=== PATIENT | male | born 1960 | race African-American/Black ===

== ENCOUNTER 2019-12-15 15:40 | Inpatient (IN) | payer MEDICAID ==
[~2019-12-15] VITALS: Ht 182.9 cm; Wt 79.8 kg
[2019-12-15] MEDS ORDERED: DILTIAZEM HCL 5MG/ML 5ML VIAL IV ONE ×2 (16:08→16:15)
[2019-12-15] MEDS ORDERED: SODIUM CHLORIDE 0.9% 1000ML BAG (SEPSIS BOLUS) IV ONE (16:15)
[2019-12-15] MEDS ORDERED: ONDANSETRON HCL 4MG/2ML INJ IV STA (16:20)
[2019-12-15] MEDS ORDERED: MORPHINE SULFATE 4 MG/ML CPJ (NOT FOR IM USE) IV STA (16:20)
[2019-12-15 16:24] LABS: HEMOGLOBIN. 9.4 g/dL (14.0-18.0); MEAN CORPUSCULAR VOLUME 86.9 fL (80.0-94.0); MEAN PLATELET VOLUME 8.3 fl (7.4-10.4); PLATELET 253 x1000/uL (130-400); RED BLOOD CELL COUNT 3.34 mill/uL (4.7-6.1); RED CELL DISTRIBUTION WIDTH 17.3 % (11.6-14.6)
[2019-12-15 16:30] LABS: CHLORIDE 108 mEq/L (98-107)
[2019-12-15 16:32] LABS: INR 1.1; PARTIAL THROMBOPLASTIN TIME 24.9 sec (23.4-31.0); PROTHROMBIN TIME 12.1 sec (9.6-11.0)
[2019-12-15 17:26] LABS: PLATELET ESTIMATE NORMAL
[2019-12-15 17:36] LABS: CLARITY URINE CLEAR (CLEAR); COLOR URINE YELLOW (YELLOW); KETONES URINE NEGATIVE (NEGATIVE); LEUKOCYTE ESTERASE URINE TRACE (NEGATIVE); NITRITE URINE NEGATIVE (NEGATIVE); OCCULT BLOOD URINE NEGATIVE (NEGATIVE); PROTEIN URINE NEGATIVE (NEGATIVE); SPECIFIC GRAVITY URINE 1.022 (1.005-1.030); UROBILINOGEN URINE 0.2 E.U./dL (0.2-1.0)
[2019-12-15 17:53] LABS: *AMPHETAMINES SCREEN URINE NEGATIVE (NEGATIVE); *BARBITURATES SCREEN URINE NEGATIVE (NEGATIVE); *BENZODIAZEPINES SCREEN URINE NEGATIVE (NEGATIVE); *COCAINE SCREEN URINE NEGATIVE (NEGATIVE)
[2019-12-15 17:54] LABS: CANNABINOID URINE SCREEN PRESUMTIVE POSITIVE (NEGATIVE); METHADONE URINE SCREEN NEGATIVE (NEGATIVE); OPIATES URINE SCREEN PRESUMTIVE POSITIVE (NEGATIVE); PHENCYCLIDINE URINE SCREEN NEGATIVE (NEGATIVE)
[2019-12-15] MEDS ORDERED: LEVOFLOXACIN 750MG PREMIX 150 ML IV ONE (18:15)
[2019-12-15] MEDS ORDERED: METRONIDAZOLE 500 MG PREMIX 100 ML IV ONE (18:15)
[2019-12-15] MEDS ORDERED: PANTOPRAZOLE SODIUM 40 MG/VIAL IV ONE (18:15)
[2019-12-15] MEDS ORDERED: DILTIAZEM HCL 60MG TABLET PO ONE (18:15)
[2019-12-15] MEDS ORDERED: IPRATROPIUM/ALBUTEROL 0.5-3(2.5)MG/3ML NEB HHN PRN (19:30)
[2019-12-15] MEDS ORDERED: ONDANSETRON HCL 4MG/2ML INJ IV PRN (19:30)
[2019-12-15] MEDS ORDERED: CLONIDINE 0.1MG TABLET PO PRN (19:30)
[2019-12-15] MEDS ORDERED: ACETAMINOPHEN 325MG TABLET PO PRN (19:30)
[2019-12-15 20:43] LABS: PHOSPHORUS 3.3 mg/dL (2.5-4.9)
[2019-12-15 23:00] VITALS: BP 126/75
[2019-12-15] MEDS ORDERED: ASPI-1158 PO (23:09)
[2019-12-15] MEDS ORDERED: LIP40 PO (23:09)
[2019-12-15] MEDS ORDERED: METO-539 PO (23:10)
[2019-12-15] MEDS ORDERED: AMLO5TAB88 PO (23:12)
[2019-12-15] MEDS ORDERED: HYDR25TA PO (23:12)
[2019-12-15] MEDS ORDERED: RIVA20TA PO (23:12)
[2019-12-16] VITALS (19 sets, daily range): BP systolic 94–137; BP diastolic 45–89
[2019-12-16] MEDS: MORPHINE SULFATE 2 MG/ML CPJ (NOT FOR IM USE) IV PRN ×2 (00:34→04:15)
[2019-12-16] MEDS: SODIUM CHLORIDE 0.9% 1,000 ML IV SCH ×3 (00:35→20:00)
[2019-12-16 00:53] LABS: HEMATOCRIT 21.9 % (42.0-52.0); HEMOGLOBIN 7.2 g/dL (14.0-18.0); MEAN CORPUSCULAR HEMOGLOBIN 28.3 pg (28.0-32.0); MEAN CORPUSCULAR VOLUME 86.3 fL (80.0-94.0); PLATELET 200 x1000/uL (130-400); RED BLOOD CELL COUNT 2.54 mill/uL (4.7-6.1); RED CELL DISTRIBUTION WIDTH 17.3 % (11.6-14.6)
[2019-12-16] MEDS ORDERED: DEXTROSE 50% WATER 50ML SYRINGE IV PRN (03:15)
[2019-12-16] MEDS ORDERED: LORAZEPAM 0.5MG TABLET PO PRN (03:30)
[2019-12-16] MEDS ORDERED: PANTOPRAZOLE 80 MG in SODIUM CHLORIDE 0.9% 100 ML IV SCH (04:00)
[2019-12-16] MEDS ORDERED: DILTIAZEM HCL 60MG TABLET PO SCH (04:00)
[2019-12-16] MEDS: BLOOD SUGAR DIAGNOSTIC STRIP TEST SCH ×4 (05:26→20:18)
[2019-12-16] MEDS: INSULIN LISPRO 100 UNITS/ML SUBCUT SCH ×4 (05:26→20:18)
[2019-12-16] MEDS: METRONIDAZOLE 500 MG PREMIX 100 ML IV SCH ×3 (05:28→23:06)
[2019-12-16 06:45] LABS: BASOPHILS % 0.3 % (0.0-2.0); EOSINOPHILS % 0.3 % (0.0-5.0); LYMPHOCYTES % 17.6 % (20.0-50.0); MEAN CORPUSCULAR HEMOGLOBIN 28.2 pg (28.0-32.0); MEAN CORPUSCULAR VOLUME 86.9 fL (80.0-94.0); MEAN PLATELET VOLUME 8.3 fl (7.4-10.4); MONOCYTES % 8.3 % (2.0-8.0); NEUTROPHILS % 73.5 % (40.0-76.0); PLATELET 174 x1000/uL (130-400); RED BLOOD CELL COUNT 2.23 mill/uL (4.7-6.1); RED CELL DISTRIBUTION WIDTH 17.6 % (11.6-14.6)
[2019-12-16 06:55] LABS: CHLORIDE 111 mEq/L (98-107)
[2019-12-16 07:02] LABS: LDL CHOLESTEROL 41 mg/dL (5-100)
[2019-12-16 07:06] LABS: HDL CHOLESTEROL 33 mg/dL (40-59)
[2019-12-16 07:24] LABS: HEMATOCRIT. 19.4 % (42.0-52.0); HEMOGLOBIN. 6.3 g/dL (14.0-18.0)
[2019-12-16] MEDS: SUCRALFATE 1 G/10 ML UDC PO SCH ×3 (13:20→20:18)
[2019-12-16] MEDS: DILTIAZEM HCL 60MG TABLET PO SCH ×2 (13:21→18:43)
[2019-12-16] MEDS ORDERED: LEVOFLOXACIN 500MG PREMIX 100 ML IV SCH ×2 (15:00→18:00)
[2019-12-16 15:54] LABS: BASOPHILS % 0.3 % (0.0-2.0); EOSINOPHILS % 0.5 % (0.0-5.0); HEMATOCRIT. 22.2 % (42.0-52.0); HEMOGLOBIN. 7.4 g/dL (14.0-18.0); LYMPHOCYTES % 16.7 % (20.0-50.0); MEAN CORPUSCULAR HEMOGLOBIN 28.8 pg (28.0-32.0); MEAN CORPUSCULAR VOLUME 86.4 fL (80.0-94.0); MEAN PLATELET VOLUME 8.4 fl (7.4-10.4); NEUTROPHILS % 74.5 % (40.0-76.0); PLATELET 168 x1000/uL (130-400); RED BLOOD CELL COUNT 2.57 mill/uL (4.7-6.1)
[2019-12-16 15:56] LABS: PROTHROMBIN TIME 11.2 sec (9.6-11.0)
[2019-12-16 16:03] LABS: CHLORIDE 111 mEq/L (98-107)
[2019-12-16] MEDS ORDERED: FENTANYL CITRATE/PF 50MCG/ML 2ML VIAL ONE (16:22)
[2019-12-16] MEDS ORDERED: MIDAZOLAM HCL 5 MG/5 ML VIAL ONE (16:22)
[2019-12-16] MEDS ORDERED: MIDAZOLAM HCL 5 MG/5 ML VIAL IV PRN (16:37)
[2019-12-16] MEDS ORDERED: FENTANYL CITRATE/PF 50MCG/ML 2ML VIAL IV PRN (16:38)
[2019-12-16] MEDS: PANTOPRAZOLE SODIUM 40 MG/VIAL IV SCH (18:43)
[2019-12-16] MEDS: METOCLOPRAMIDE HCL 10MG/2ML VIAL IV SCH (20:18)
[2019-12-17] VITALS (13 sets, daily range): BP systolic 98–129; BP diastolic 52–79
[2019-12-17] MEDS: METOCLOPRAMIDE HCL 10MG/2ML VIAL IV SCH ×4 (06:16→21:11)
[2019-12-17] MEDS: SUCRALFATE 1 G/10 ML UDC PO SCH ×4 (06:16→21:12)
[2019-12-17] MEDS: DILTIAZEM HCL 60MG TABLET PO SCH ×3 (06:17→11:54)
[2019-12-17] MEDS: BLOOD SUGAR DIAGNOSTIC STRIP TEST SCH ×4 (06:17→21:12)
[2019-12-17] MEDS: SODIUM CHLORIDE 0.9% 1,000 ML IV SCH ×2 (06:18→16:00)
[2019-12-17] MEDS: METRONIDAZOLE 500 MG PREMIX 100 ML IV SCH (06:19)
[2019-12-17] MEDS: INSULIN LISPRO 100 UNITS/ML SUBCUT SCH ×4 (07:20→21:00)
[2019-12-17] MEDS: PANTOPRAZOLE SODIUM 40 MG/VIAL IV SCH ×2 (08:56→18:27)
[2019-12-17] MEDS: AMIODARONE HCL 200 MG TABLET PO SCH ×2 (13:22→21:12)
[2019-12-17] MEDS: DILTIAZEM HCL 30MG TABLET PO SCH ×2 (18:27→23:45)
[2019-12-18] VITALS (21 sets, daily range): BP systolic 101–137; BP diastolic 44–89
[2019-12-18] MEDS: SODIUM CHLORIDE 0.9% 1,000 ML IV SCH ×2 (02:46→12:21)
[2019-12-18] MEDS: DILTIAZEM HCL 30MG TABLET PO SCH ×3 (05:52→17:46)
[2019-12-18] MEDS: SUCRALFATE 1 G/10 ML UDC PO SCH ×3 (05:52→17:45)
[2019-12-18] MEDS: METOCLOPRAMIDE HCL 10MG/2ML VIAL IV SCH ×3 (05:52→17:47)
[2019-12-18] MEDS: BLOOD SUGAR DIAGNOSTIC STRIP TEST SCH ×3 (05:52→17:46)
[2019-12-18] MEDS: INSULIN LISPRO 100 UNITS/ML SUBCUT SCH ×3 (06:01→17:20)
[2019-12-18 06:41] LABS: CHLORIDE 111 mEq/L (98-107)
[2019-12-18 06:46] LABS: PHOSPHORUS 2.6 mg/dL (2.5-4.9)
[2019-12-18 06:54] LABS: BASOPHILS % 0.6 % (0.0-2.0); EOSINOPHILS % 1.3 % (0.0-5.0); HEMATOCRIT. 21.4 % (42.0-52.0); HEMOGLOBIN. 7.3 g/dL (14.0-18.0); LYMPHOCYTES % 20.8 % (20.0-50.0); MEAN CORPUSCULAR HEMOGLOBIN 29.5 pg (28.0-32.0); MEAN CORPUSCULAR VOLUME 86.9 fL (80.0-94.0); MEAN PLATELET VOLUME 8.1 fl (7.4-10.4); MONOCYTES % 7.4 % (2.0-8.0); NEUTROPHILS % 69.9 % (40.0-76.0); PLATELET 176 x1000/uL (130-400); RED BLOOD CELL COUNT 2.47 mill/uL (4.7-6.1); RED CELL DISTRIBUTION WIDTH 17.5 % (11.6-14.6)
[2019-12-18] MEDS: PANTOPRAZOLE SODIUM 40 MG/VIAL IV SCH ×2 (08:49→17:46)
[2019-12-18] MEDS: AMIODARONE HCL 200 MG TABLET PO SCH (08:49)
[2019-12-18] MEDS ORDERED: POTASSIUM CHLORIDE 20MEQ TABLET SR PO NR (10:30)
[2019-12-18] MEDS ORDERED: SUCR1ORA15 PO (10:38)
[2019-12-18] MEDS ORDERED: DILT120C88 MT ×2 (10:38→11:31)
[2019-12-18] MEDS ORDERED: PANT40TA4 MT (10:38)
[2019-12-18] MEDS ORDERED: AMIO100T4 PO (10:38)
[2019-12-18] MEDS ORDERED: MAGNESIUM OXIDE 400MG TABLET PO SCH (11:00)
[2019-12-18] MEDS ORDERED: DILT180C66 MT (11:27)
[2019-12-18 20:01] LABS: HEMATOCRIT 28.3 % (42.0-52.0); HEMOGLOBIN 9.6 g/dL (14.0-18.0); MEAN CORPUSCULAR HEMOGLOBIN 29.5 pg (28.0-32.0); MEAN CORPUSCULAR VOLUME 87.4 fL (80.0-94.0); PLATELET 169 x1000/uL (130-400); RED BLOOD CELL COUNT 3.24 mill/uL (4.7-6.1)
== END 2019-12-18 20:30 | disposition home or self-care (01) | DRG 242 ==
LOC: ER 15:40 → 3WST 18:12 → ENRESERV 20:19
PROVIDERS: ADMIT Internal Medicine; ATTEND Internal Medicine
PROC: 0DB68ZX Excision of Stomach, Via Natural or Artificial Opening Endoscopic, Diagnostic (ICD-10-PCS; principal; 2019-12-16)
PROC: 4A00X4Z Measurement of Central Nervous Electrical Activity, External Approach (ICD-10-PCS; 2019-12-16)
PROC: 30233N1 Transfusion of Nonautologous Red Blood Cells into Peripheral Vein, Percutaneous Approach (ICD-10-PCS; 2019-12-16)
DX: K22.6 Gastro-esophageal laceration-hemorrhage syndrome (principal); E87.2 Acidosis; I95.9 Hypotension, unspecified; I48.91 Unspecified atrial fibrillation; E44.1 Mild protein-calorie malnutrition; R65.10 Systemic inflammatory response syndrome (SIRS) of non-infectious origin without acute organ dysfunction; D50.0 Iron deficiency anemia secondary to blood loss (chronic); I48.92 Unspecified atrial flutter; E78.5 Hyperlipidemia, unspecified; I10 Essential (primary) hypertension; K52.9 Noninfective gastroenteritis and colitis, unspecified; K29.70 Gastritis, unspecified, without bleeding; K25.4 Chronic or unspecified gastric ulcer with hemorrhage; E78.00 Pure hypercholesterolemia, unspecified; Z60.2 Problems related to living alone; I25.10 Atherosclerotic heart disease of native coronary artery without angina pectoris; R79.89 Other specified abnormal findings of blood chemistry; R73.9 Hyperglycemia, unspecified; K57.30 Diverticulosis of large intestine without perforation or abscess without bleeding; I25.2 Old myocardial infarction; K40.20 Bilateral inguinal hernia, without obstruction or gangrene, not specified as recurrent; Z79.01 Long term (current) use of anticoagulants; Z79.82 Long term (current) use of aspirin; Z90.49 Acquired absence of other specified parts of digestive tract; Z87.891 Personal history of nicotine dependence; Z79.899 Other long term (current) drug therapy
CPT/HCPCS: 36415; 71045; 74176; 80048; 80053; 80061; 80305; 80320; 81003; 82962; 83036; 83605; 83735; 83880; 84100; 84145; 84443; 84484; 85025; 85027; 85384; 86850; 86900; 86920; 88305; 88313; 93005; 93306; 93970; 96374; 99291; C9113; J1956; J2250; J2270; J2405; J2765; J3010; J3490; J7030; J7050; P9016; G0480

== ENCOUNTER 2024-11-08 17:36 | Inpatient (IN) | payer MEDICARE, MEDICAID ==
[~2024-11-08] VITALS: Ht 198.1 cm; Wt 80.3 kg
[~2024-11-08 17:36] MED LIST: AMIO100T4 PO; DILT120C88 MT; LIP40 PO; PANT40TA51 MT; SUCR1ORA15 PO
[2024-11-08] MEDS: DILTIAZEM HCL 5MG/ML 5ML VIAL IV ONE (18:08)
[2024-11-08 18:14] LABS: HEMATOCRIT. 37.1 % (42.0-52.0); HEMOGLOBIN. 11.9 g/dL (14.0-18.0); MEAN CORPUSCULAR HEMOGLOBIN 25.6 pg (28.0-32.0); MEAN CORPUSCULAR HGB CONC 32.2 g/dL (31.0-37.0); MEAN CORPUSCULAR VOLUME 79.4 fL (80.0-94.0); MEAN PLATELET VOLUME 8.3 fl (7.4-10.4); PLATELET 447 x1000/uL (130-400); RED BLOOD CELL COUNT 4.67 mill/uL (4.7-6.1); RED CELL DISTRIBUTION WIDTH 20.3 % (11.6-14.6); WHITE BLOOD COUNT 20.4 x1000/uL (4.5-11.0)
[2024-11-08 18:16] LABS: DIFFERENTIAL COMMENT 1
[2024-11-08 18:22] LABS: CHLORIDE 98 mEq/L (98-107); SODIUM 139 mEq/L (136-145)
[2024-11-08 18:23] LABS: CARBON DIOXIDE 31 mEq/L (21-32)
[2024-11-08] MEDS: MORPHINE SULFATE 4 MG/ML INJ (FOR IV/IM USE) IV ONE (18:24)
[2024-11-08 18:28] LABS: GLUCOSE 123 mg/dL (70-105); UREA NITROGEN BLOOD 19 mg/dL (9-23)
[2024-11-08 18:30] LABS: TROPONIN I HIGH SENSITIVITY 41 ng/L (3.0-53)
[2024-11-08 18:43] LABS: INR 1.4; PARTIAL THROMBOPLASTIN TIME 34.7 sec (23.4-31.0); PROTHROMBIN TIME 14.4 sec (9.6-11.0)
[2024-11-08] MEDS: DILTIAZEM HCL 90MG TABLET PO ONE (18:49)
[2024-11-08] MEDS: POTASSIUM CHLORIDE 20MEQ TABLET SR PO ONE (18:58)
[2024-11-08] MEDS: MAGNESIUM 2 G PREMIX 50 ML IV ONE (18:58)
[2024-11-08] MEDS: LACTATED RINGERS 1,000 ML IV ONE ×2 (18:59→21:07)
[2024-11-08 19:10] LABS: ANISOCYTOSIS 1+; MICROCYTOSIS 1+; PLATELET ESTIMATE INCREASED
[2024-11-08 22:11] VITALS: BP 132/77; PULSE 118; RESP 19; TEMP 37
[2024-11-08] MEDS ORDERED: *PATIENT'S OWN MEDICATION STORAGE XX SCH (22:45)
[2024-11-09] VITALS (10 sets, daily range): BP systolic 97–136; BP diastolic 62–89; PULSE 111–127; RESP 16–29; TEMP 36.2–37.4; O2SAT 95–99
[2024-11-09] MEDS ORDERED: ENOXAPARIN 40MG/0.4ML SYR SUBCUT SCH
[2024-11-09] MEDS ORDERED: MAGNESIUM/ALUMINUM HYDROXIDE/SIMETHICONE 30ML UDC PO PRN
[2024-11-09] MEDS ORDERED: ZOLPIDEM TARTRATE 5MG TABLET PO PRN
[2024-11-09] MEDS ORDERED: MORPHINE SULFATE 2 MG/ML INJ (NOT FOR IM USE) IV PRN
[2024-11-09] MEDS ORDERED: ONDANSETRON HCL 4MG/2ML INJ IV PRN
[2024-11-09] MEDS ORDERED: LORAZEPAM 2MG/ML INJ IV PRN
[2024-11-09] MEDS ORDERED: IPRATROPIUM/ALBUTEROL 0.5-3(2.5)MG/3ML NEB NEB PRN
[2024-11-09] MEDS: IOHEXOL-350 100 ML BOTTLE ONE (00:02)
[2024-11-09] MEDS: ATORVASTATIN CALCIUM 40MG TABLET PO SCH (02:52)
[2024-11-09] MEDS: DILTIAZEM HCL 30MG TABLET PO SCH (02:53)
[2024-11-09] MEDS: AMIODARONE 200MG TABLET PO SCH (02:53)
[2024-11-09] MEDS: ENOXAPARIN 80MG/0.8ML SYR SUBCUT SCH (02:55)
[2024-11-09] MEDS: SODIUM CHLORIDE 0.9% 1,000 ML IV SCH (02:56)
[2024-11-09 07:09] LABS: CARBON DIOXIDE 29 mEq/L (21-32); CHLORIDE 101 mEq/L (98-107); POTASSIUM 3.4 mEq/L (3.5-5.1); SODIUM 138 mEq/L (136-145)
[2024-11-09 07:11] LABS: CALCIUM 8.5 mg/dL (8.7-10.4); TROPONIN I HIGH SENSITIVITY 38 ng/L (3.0-53)
[2024-11-09 07:15] LABS: CREATININE 0.7 mg/dL (0.6-1.3); GLUCOSE 110 mg/dL (70-105); UREA NITROGEN BLOOD 14 mg/dL (9-23)
[2024-11-09] MEDS: PANTOPRAZOLE SODIUM 40 MG/VIAL IV SCH (08:25)
[2024-11-09 08:52] LABS: BG BASE EXCESS 5.6 mmol/L (-2.0-3.0); BG CARBOXYHEMOGLOBIN 2.3 % (0.5-1.5); BG DEOXYHEMOGLOBIN 4.6 % (0.0-5.0); BG FRACTION INSPIRED OXYGEN 21; BG METHEMOGLOBIN 0.3 % (0.5-1.5); BG OXYGEN SATURATION 95.3 % (94.0-98.0); BG OXYHEMOGLOBIN 92.8 % (94.0-98.0); BG PH 7.501 (7.350-7.450); BG PO2 72.3 mmHg (83.0-108.0); BG SAMPLE SITE LEFT BRACHIAL; BG TOTAL HEMOGLOBIN 12.4 g/dL (13.5-17.5); BG VENT MODE ROOM AIR
[2024-11-09] MEDS: POTASSIUM CHLORIDE 20MEQ TABLET SR PO NR (09:51)
[2024-11-09] MEDS: DILTIAZEM HCL 5MG/ML 5ML VIAL IV NR (09:52)
[2024-11-09] MEDS: ACETAMINOPHEN 650MG/20.3ML UDC PO PRN (09:56)
[2024-11-09] MEDS ORDERED: NALOXONE HCL 0.4MG/ML VIAL IV PRN (10:00)
[2024-11-09] MEDS: DIGOXIN 500MCG/2ML AMP IV NR ×3 (15:43→22:46)
[2024-11-09] MEDS: PIPERACILLIN/TAZO 3.375G/50ML 50 ML IV SCH (15:43)
[2024-11-09 17:10] LABS: CLARITY URINE CLOUDY (CLEAR); COLOR URINE ORANGE (YELLOW); GLUCOSE URINE NEGATIVE (NEGATIVE); KETONES URINE NEGATIVE (NEGATIVE); LEUKOCYTE ESTERASE URINE 1+ (NEGATIVE); NITRITE URINE POSITIVE (NEGATIVE); OCCULT BLOOD URINE TRACE (NEGATIVE); PH URINE 5.5 (4.5-8.0); PROTEIN URINE 1+ (NEGATIVE)
[2024-11-09 17:28] LABS: TROPONIN I HIGH SENSITIVITY 43 ng/L (3.0-53)
[2024-11-09 17:41] LABS: BACTERIA URINE 3+; RBC URINE 0-2 /hpf (0-2); SQUAMOUS EPITHELIAL CELL URINE FEW /lpf (RARE/1+)
[2024-11-09 17:50] LABS: *AMPHETAMINES SCREEN URINE NEGATIVE (NEGATIVE); *BARBITURATES SCREEN URINE NEGATIVE (NEGATIVE); *BENZODIAZEPINES SCREEN URINE NEGATIVE (NEGATIVE); *COCAINE SCREEN URINE NEGATIVE (NEGATIVE); CANNABINOID URINE SCREEN PRESUMPTIVE POSITIVE (NEGATIVE); ECSTASY MDMA SCREEN URINE NEGATIVE (NEGATIVE); METHADONE URINE SCREEN NEGATIVE (NEGATIVE); OPIATES URINE SCREEN NEGATIVE (NEGATIVE); PHENCYCLIDINE URINE SCREEN NEGATIVE (NEGATIVE)
[2024-11-10] VITALS (7 sets, daily range): BP systolic 110–144; BP diastolic 66–84; PULSE 109–120; RESP 18–30; TEMP 36.7–37.2; O2SAT 96–98
[2024-11-10] MEDS: HYDROCODONE/ACETAMINOPHEN 5/325MG TABLET PO PRN (04:35)
[2024-11-10 07:11] LABS: CARBON DIOXIDE 27 mEq/L (21-32); CHLORIDE 104 mEq/L (98-107); SODIUM 139 mEq/L (136-145)
[2024-11-10 07:12] LABS: CALCIUM 8.1 mg/dL (8.7-10.4)
[2024-11-10 07:16] LABS: CREATININE 0.7 mg/dL (0.6-1.3)
[2024-11-10 07:17] LABS: GLUCOSE 110 mg/dL (70-105); UREA NITROGEN BLOOD 12 mg/dL (9-23)
[2024-11-10] MEDS: DIGOXIN 125MCG TABLET PO SCH (17:48)
[2024-11-10] MEDS ORDERED: AMIODARONE HCL 150 MG in DEXT 5% WATER 100 ML IV ONE (21:00)
[2024-11-10] MEDS: AMIODARONE 150MG/100ML PREMIX IV NR (23:30)
[2024-11-11] VITALS (12 sets, daily range): BP systolic 121–157; BP diastolic 70–87; PULSE 104–114; RESP 20–29; TEMP 36.4–36.8; O2SAT 96–98
[2024-11-11] MEDS: AMIODARONE HCL 900 MG in DEXT 5% WATER 482 ML IV SCH (00:24)
[2024-11-11] MEDS: LOSARTAN 25 MG TABLET PO SCH (09:07)
[2024-11-11] MEDS: FAMOTIDINE 20MG/2ML VIAL IV SCH (09:07)
[2024-11-11] MEDS: ENOXAPARIN 60MG/0.6ML SYR SUBCUT SCH (21:10)
[2024-11-11] MEDS: METOPROLOL TARTRATE 25MG TABLET PO SCH (21:12)
[2024-11-11 21:32] LABS: HEMATOCRIT. 27.3 % (42.0-52.0); MEAN CORPUSCULAR HEMOGLOBIN 26.7 pg (28.0-32.0); MEAN CORPUSCULAR HGB CONC 33.1 g/dL (31.0-37.0); MEAN CORPUSCULAR VOLUME 80.7 fL (80.0-94.0); MEAN PLATELET VOLUME 8.6 fl (7.4-10.4); PLATELET 430 x1000/uL (130-400); RED BLOOD CELL COUNT 3.39 mill/uL (4.7-6.1); WHITE BLOOD COUNT 20.7 x1000/uL (4.5-11.0)
[2024-11-11 21:34] LABS: CHLORIDE 102 mEq/L (98-107); POTASSIUM 3.7 mEq/L (3.5-5.1); SODIUM 137 mEq/L (136-145)
[2024-11-11 21:35] LABS: CARBON DIOXIDE 28 mEq/L (21-32)
[2024-11-11 21:36] LABS: DIFFERENTIAL COMMENT 1
[2024-11-11 21:40] LABS: CREATININE 0.7 mg/dL (0.6-1.3)
[2024-11-11 21:41] LABS: GLUCOSE 100 mg/dL (70-105); UREA NITROGEN BLOOD 9 mg/dL (9-23)
[2024-11-11 22:09] LABS: ANISOCYTOSIS 2+; PLATELET ESTIMATE NORMAL
[2024-11-12] VITALS (12 sets, daily range): BP systolic 108–170; BP diastolic 56–94; PULSE 70–100; RESP 12–30; TEMP 36.4–37.5; O2SAT 96–99
[2024-11-12] MEDS: SPIRONOLACTONE 12.5MG TABLET PO SCH (09:02)
[2024-11-12] MEDS: CEFAZOLIN 1000MG PREMIX 50 ML IV SCH (11:53)
[2024-11-12] MEDS: ENOXAPARIN 80MG/0.8ML SYR SUBCUT SCH (21:46)
[2024-11-12] MEDS: ATORVASTATIN CALCIUM 40MG TABLET PO SCH (21:46)
[2024-11-12] MEDS: AMLODIPINE 5MG TABLET PO SCH (21:47)
[2024-11-13] VITALS (12 sets, daily range): BP systolic 126–169; BP diastolic 67–88; PULSE 87–118; RESP 17–30; TEMP 36.7–37.7; O2SAT 96–98
[2024-11-13 05:56] LABS: CHLORIDE 102 mEq/L (98-107); POTASSIUM 3.7 mEq/L (3.5-5.1); SODIUM 138 mEq/L (136-145)
[2024-11-13 05:57] LABS: CALCIUM 8.4 mg/dL (8.7-10.4); CARBON DIOXIDE 29 mEq/L (21-32)
[2024-11-13 06:02] LABS: CREATININE 0.7 mg/dL (0.6-1.3); GLUCOSE 88 mg/dL (70-105); UREA NITROGEN BLOOD 7 mg/dL (9-23)
[2024-11-13 06:05] LABS: HEMATOCRIT. 27.7 % (42.0-52.0); MEAN CORPUSCULAR HEMOGLOBIN 25.8 pg (28.0-32.0); MEAN CORPUSCULAR HGB CONC 32.5 g/dL (31.0-37.0); MEAN CORPUSCULAR VOLUME 79.3 fL (80.0-94.0); MEAN PLATELET VOLUME 8.4 fl (7.4-10.4); PLATELET 433 x1000/uL (130-400); RED CELL DISTRIBUTION WIDTH 20.1 % (11.6-14.6); WHITE BLOOD COUNT 18.5 x1000/uL (4.5-11.0)
[2024-11-13 06:45] LABS: DIFFERENTIAL COMMENT 1
[2024-11-13 16:08] LABS: MICROCYTOSIS 1+; PLATELET ESTIMATE SLIGHTLY INCREASED
[2024-11-13 16:09] LABS: ANISOCYTOSIS 2+
[2024-11-13] MEDS: DOCUSATE SODIUM 100MG CAPSULE PO SCH (20:33)
[2024-11-14] VITALS (7 sets, daily range): BP systolic 108–170; BP diastolic 68–84; PULSE 69–129; RESP 17–28; TEMP 36.3–37.3; O2SAT 97–99
[2024-11-14] MEDS: CLONIDINE 0.1MG TABLET PO PRN (01:09)
[2024-11-14 05:43] LABS: CHLORIDE 100 mEq/L (98-107); POTASSIUM 3.3 mEq/L (3.5-5.1); SODIUM 136 mEq/L (136-145)
[2024-11-14 05:44] LABS: CALCIUM 8.1 mg/dL (8.7-10.4); CARBON DIOXIDE 28 mEq/L (21-32)
[2024-11-14 05:49] LABS: CREATININE 0.7 mg/dL (0.6-1.3); GLUCOSE 97 mg/dL (70-105); UREA NITROGEN BLOOD 8 mg/dL (9-23)
[2024-11-14 05:54] LABS: BASOPHILS % 0.2 % (0.0-2.0); DIFFERENTIAL COMMENT 0; EOSINOPHILS % 0.3 % (0.0-5.0); HEMOGLOBIN. 8.5 g/dL (14.0-18.0); LYMPHOCYTES % 7.4 % (20.0-50.0); MEAN CORPUSCULAR HEMOGLOBIN 25.9 pg (28.0-32.0); MEAN CORPUSCULAR HGB CONC 32.8 g/dL (31.0-37.0); MEAN PLATELET VOLUME 8.5 fl (7.4-10.4); MONOCYTES % 10.3 % (2.0-8.0); NEUTROPHILS % 81.8 % (40.0-76.0); PLATELET 437 x1000/uL (130-400); RED BLOOD CELL COUNT 3.29 mill/uL (4.7-6.1); RED CELL DISTRIBUTION WIDTH 20.1 % (11.6-14.6); WHITE BLOOD COUNT 17.2 x1000/uL (4.5-11.0)
[2024-11-14] MEDS ORDERED: LIP40 PO (08:54)
[2024-11-14] MEDS ORDERED: HYDR-4001 MT (08:54)
[2024-11-14] MEDS ORDERED: AMLO5TAB88 PO (08:54)
[2024-11-14] MEDS ORDERED: LOSA25TA26 PO (08:54)
[2024-11-14] MEDS ORDERED: APIX5TAB MT (08:54)
[2024-11-14] MEDS ORDERED: SPIR25TA PO (08:54)
[2024-11-14] MEDS ORDERED: DIGO-34 PO (08:54)
[2024-11-14] MEDS ORDERED: AMIODARONE 200MG TABLET PO SCH (10:00)
[2024-11-14] MEDS ORDERED: METOPROLOL TARTRATE 50MG TABLET PO SCH (10:00)
== END 2024-11-14 11:43 | disposition home or self-care (01) | DRG 871 ==
LOC: ER 17:36 → EDBEDREQTM 20:26 → EDBEDREQ 20:26 → 3WST 21:39 → 5EST 11-10 22:56
PROVIDERS: ADMIT Internal Medicine; ATTEND Internal Medicine
DX: A41.9 Sepsis, unspecified organism (principal); I50.23 Acute on chronic systolic (congestive) heart failure; N39.0 Urinary tract infection, site not specified; I48.92 Unspecified atrial flutter; I48.91 Unspecified atrial fibrillation; I11.0 Hypertensive heart disease with heart failure; B96.1 Klebsiella pneumoniae [K. pneumoniae] as the cause of diseases classified elsewhere; B96.89 Other specified bacterial agents as the cause of diseases classified elsewhere; E78.5 Hyperlipidemia, unspecified; I25.10 Atherosclerotic heart disease of native coronary artery without angina pectoris; I25.2 Old myocardial infarction; Z79.01 Long term (current) use of anticoagulants
CPT/HCPCS: 36415; 36600; 71045; 71275; 80048; 80162; 80305; 81003; 82375; 82805; 83735; 83880; 84145; 84484; 85025; 86850; 86900; 87077; 87186; 93005; 93306; 93970; 99285; A4606; J0282; J0690; J1160; J1650; J2470; J2543; J3475; J3490; J7030; J7060; J7120; Q9967